=== PATIENT | male | born 2005 | race Caucasian/White ===

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

== ENCOUNTER 2023-08-25 22:17 | Emergency (ER) | payer BC, SELFPAY ==
[2023-08-25 22:24] VITALS: BP 155/82; PULSE 121; RESP 20; TEMP 36.7; O2SAT 99
--- NOTE | 2023-08-25 22:32 | ED.GENADULT ---
HPI - General Adult General Chief complaint: Abdominal Pain Stated complaint: Nausea/headache Time Seen by Provider: 08/25/23 22:18 History of Present Illness HPI narrative: This is a 17-year-old male with a history anxiety depression bipolar disorder presenting with abdominal pain. Patient says for the last days he has had diffuse achy abdominal pain, that is 3/10 intensity and comes and goes. Patient notes he has had multiple episodes of nausea, vomiting, diarrhea per day. Patient states he has had subjective fevers does not take temperature. He has had pain like this in the past when he has been under significant stress. Patient had a child delivered 5 days ago which is causing him a significant amount of anxiety. Patient has not been taking his psychiatric medications lately because he cannot remember to take it. Related Data Allergies Allergy/AdvReac Type Severity Reaction Status Date / Time No Known Allergies Allergy Verified 08/25/23 22:22 [facility] Past Medical History Medical History Anxiety with depression Bipolar affect, depressed Social History Social History Smoking status: Never smoker Tobacco type: e-cigarettes/vaping Alcohol intake: never Substance use: current Substance use type: marijuana Lack of Transportation: No Lack of Food: Never True Current Housing: I Have Housing Concerned About Future Housing: No Difficulty Paying Gas/Electric Bills: No Difficulty Paying for Meds: No Currently Unemployed: No Education: Grade School Difficulty w/ Childcare or Family Care: No Living arrangements: with family Additional living arrangements comments: Lives with parents Additional occupation/education comments: Did not finish highschool Gender identity (if verbalized by the patient): Male Exam Narrative: APPEARANCE: Patient is anxious, poor eye contact Head: atraumatic. EYES: EOMI, NOSE: Atraumatic NECK: Trachea midline RESPIRATORY: No increased rate of breathing clear to auscultation CARDIOVASCULAR: tachycardic ABDOMINAL: Non-distended, soft nontender no guarding or rebound MUSCULOSKELETAl: No obvious deformities NEURO: Alert. Moving 4/4 extremities SKIN:: Warm, dry. Normal color PSYCHIATRIC: anxious Course Vital Signs Vital signs: Vital Signs Temperature 98.1 F 08/25/23 22:24 Pulse Rate 121 H 08/25/23 22:24 Respiratory Rate 20 08/25/23 22:24 Blood Pressure 155/82 H 08/25/23 22:24 Pulse Oximetry 99 08/25/23 22:24 Oxygen Delivery Room Air 08/25/23 22:24 Temperature 98.1 F 08/25/23 22:24 Pulse Rate 54 L 08/25/23 23:06 Respiratory Rate 18 08/25/23 23:06 Blood Pressure 110/64 08/25/23 23:06 Pulse Oximetry 98 08/25/23 23:06 Oxygen Delivery Room Air 08/25/23 22:24 Medical Decision Making MDM Narrative Medical decision making narrative: -Course: 17 year old presenting with abdominal pain and n/v/d. Laboratory studies within acceptable limits. Abdominal exam benign, no indication for CT. Patient was originally tachycardic and nausea but resolved with ativan. suspect symptoms are due to stress reaction. On re-evaluation patient feels better. VSS. tolerating PO. Discharged with primary care followup. -DDX includes but is not limited to: gastritis, peptic ulcer disease, gastroenteritis, viral syndrome, stress reaction -Co-morbidities complicating care: anxiety, depression, bipolar disorder, GERD -Social determinants of health: unemployed, not going to school, lives with his mom, recently became a father. -External Chart Review: review of primary care notes for bipolar disorder -Hx from independent Sources: mother @ bedside -Independent interpretation of studies: -Interventions: 2 L normal saline 1 mg Ativan IV, Maalox, Pepcid -Shared decision making / Disposition:discharged w/ pcp f/u. Vital Sig
[2023-08-25] MEDS: LORazepam INJ (*CRX) 2 MG/ML VIAL 1 MG IV PUSH (22:47)
[2023-08-25] MEDS: MAG HYDROX/AL HYDROX/SIMETH 30 ML UDC PO (22:47)
[2023-08-25] MEDS: FAMOTIDINE 20 MG/2 ML VIAL IV PUSH (22:47)
[2023-08-25] MEDS: SODIUM CHLORIDE 0.9% IV 2,000 ML 999 ML IV CONT (22:48)
[2023-08-25 22:50] LABS: Basophils Absolute Auto 0.04 K/mm3 (0.00-0.10); Basophils Percent Auto 0.5 % (0.0-1.0); Eosinophils Absolute Auto 0.06 K/mm3 (0.02-0.50); Eosinophils Percent Auto 0.8 % (1.0-6.0); Hematocrit 44.7 % (40.0-54.0); Immature Granulocyte Absolute 0.02 K/mm3 (0.00-0.00); Immature Granulocyte Percent A 0.3 % (0.0-0.0); Lymphocytes Absolute Auto 1.66 K/mm3 (1.10-4.50); Lymphocytes Percent Auto 22.3 % (18.0-42.0); Mean Corpuscular HGB Conc 33.6 g/dL (32.0-36.0); Mean Corpuscular Volume 86.3 fL (78.0-102.0); Mean Platelet Volume 10.6 fl (8.7-11.0); Monocytes Absolute Auto 0.54 K/mm3 (0.10-0.90); Monocytes Percent Auto 7.2 % (2.0-11.0); Neutrophils Absolute Auto 5.1 K/mm3 (1.7-7.2); Neutrophils Percent Auto 68.9 % (50.0-70.0); Platelet Count Result 311 K/mm3 (150-420); Red Blood Count 5.18 M/mm3 (4.70-6.10); Red Cell Distribution Width 11.4 % (11.6-14.4); White Blood Count 7.5 K/mm3 (4.8-10.8)
[2023-08-25 23:06] VITALS: BP 110/64; PULSE 54; RESP 18; O2SAT 98
[2023-08-25 23:06] LABS: Alanine Aminotransferase 16 U/L (16-63); Albumin Level 4.7 g/dL (3.4-5.0); Alkaline Phosphatase 79 U/L (65-260); Anion Gap 9 mmol/L (8-16); Aspartate Amino Transferase 14 U/L (15-37); Bilirubin,Total 0.9 mg/dL (0.00-1.00); Blood Urea Nitrogen 4 mg/dL (7-18); Calcium 9.6 mg/dL (8.5-10.1); Carbon Dioxide 31 mmol/L (21-32); Chloride 98 mmol/L (98-108); Estimated Glomerular Filt Rate > 60; Glucose 97 mg/dL (70-99); Lipase 15 U/L (16-77); Osmolality Calculated 282 mOsm/kg (285-295); Potassium 3.2 mmol/L (3.5-5.1); Sodium 138 mmol/L (136-145)
[2023-08-25 23:34] LABS: SARS-CoV-2 RNA PCR Negative (Negative)
[2023-08-25 23:53] LABS: Influenza A QL RT-PCR Negative (Negative); Influenza B QL RT-PCR Negative (Negative); RSV RNA, RT-PCR Negative (Negative)
[2023-08-26 00:04] VITALS: BP 108/72; PULSE 63; RESP 16; O2SAT 97
== END 2023-08-26 00:13 | disposition home or self-care (01) ==
PROVIDERS: Emergency Provider Emergency Medicine; PCP Nurse Practitioner Family
DX: F41.1 Generalized anxiety disorder (principal); R11.2 Nausea with vomiting, unspecified; R19.7 Diarrhea, unspecified; Z20.822 Contact with and (suspected) exposure to COVID-19
CPT/HCPCS: 36415; 80053; 83690; 85025; 87637; 96361; 96374; 96375; 99284; A9270; J2060; J7030